=== PATIENT | male | born 1980 | race Caucasian/White ===

== ENCOUNTER 2021-11-01 22:01 | Emergency (ER) | payer OTHER ==
[2021-11-01] MEDS ORDERED: NAPROXEN500 MG PO (22:42)
== END 2021-11-01 22:48 | disposition home or self-care (01) ==
LOC: ER1 22:01
DX: S82.141A Displaced bicondylar fracture of right tibia, initial encounter for closed fracture (principal); S82.401A Unspecified fracture of shaft of right fibula, initial encounter for closed fracture; Z88.1 Allergy status to other antibiotic agents; F17.210 Nicotine dependence, cigarettes, uncomplicated; V86.99XA Unspecified occupant of other special all-terrain or other off-road motor vehicle injured in nontraffic accident, initial encounter
CPT/HCPCS: 99283